=== PATIENT | female | born 1945 | race Caucasian/White ===

== ENCOUNTER 2016-07-13 05:25 | Day surgery (SDC) | payer MEDICARE, OTHER ==
[2016-07-13] VITALS (8 sets, daily range): BP systolic 98–114; BP diastolic 63–71; PULSE 60–82; RESP 10–17; O2SAT 90–98
[~2016-07-13] VITALS: Ht 164.5 cm; Wt 78.0 kg
[~2016-07-13 05:25] MED LIST: CHOL10008 PO; CLOB15CR2 TP; CeFAZolin 2 Gm/50 mL D5W IV Premix IV ONE; KEN1O TOP; KETACONAZOLE SHAMPOO TP; LEVO100T6 PO; LUTE1CAP4 PO; Lactated Ringer's 1,000 ML IV SCH; ONDA8TAB10 PO; OXYC1TAB24 PO; TAMS0.4C98 PO; TRAM50TA2 PO
[2016-07-13] MEDS ORDERED: Phenylephrine/NS 100 mCg/mL 10 mL Syringe IVPUSH ONE (05:26)
[2016-07-13] MEDS ORDERED: fentaNYL-PF 50 mCg/mL 2 mL Inj ONE (05:26)
[2016-07-13] MEDS ORDERED: Propofol 10,000 mCg/mL 20 mL Inj ONE (05:26)
[2016-07-13] MEDS ORDERED: Ondansetron 2 mg/mL 2 mL Inj ONE (05:26)
[2016-07-13] MEDS ORDERED: Dexamethasone 4 mg/mL Inj ONE (05:26)
[2016-07-13] MEDS ORDERED: levoFLOXacin 500 mg/100 mL D5W Premix IV ONE (07:18)
[2016-07-13] MEDS ORDERED: Lactated Ringer's 1,000 ML IV SCH (07:41)
[2016-07-13] MEDS ORDERED: Lactated Ringer's 500 ML IV PRN (07:41)
--- NOTE | 2016-07-13 07:41 | PCM.HPANE ---
Patient Data Date of Service: Jul 13, 2016 (0710) Surgeon Admitting Provider: Attending Provider:Nirav Vazquez MD Primary Care Physician:Yesenia Christopher PA-C Other Provider:Radha Ivy Anesthesia Reason for Visit Right Ureteral Stone Ht/WT & BMI Height (Feet): 5 Height (Inches): 4.75 Weight (Kilograms): 78 Body Mass Index 29.00 Allergies Coded Allergies: No Known Allergies (Unverified , 07/11/16) Past Anesthesia History Anesthesia History: Denies:: Abnormal Airway, Anesthesia Reactions, Difficult Intubation, Fam Anesthesia Reaction, Malignant Hyperthermia Diabetes History Hx Diabetes?: No MRSA MRSA: No Medications Hypertension Medication: No Home Meds Incl Beta Britt: No Active Scripts Tamsulosin (Flomax)0.4 Mg Capsule0.4 Mg PO DAILY #4 CAPSULE Ref 0 Prov:Bryce Garcia MD 05/31/16 Ondansetron ODT 8 Mg Tab.rapdis8 Mg PO QID PRN For Nausea #20 TABLET Prov:Bryce Garcia MD 05/31/16 oxyCODONE-Acetaminophen 5-325 mg 1 Each Tablet1-2 Tab PO q4 hours PRN For Pain # 20 TABLET Prov:Bryce Garcia MD 05/31/16 Reported Medications Triamcinolone Acet (Triamcinolone Acetonide Ointment)1 Applic/0.25 Gm Oint1 Applic TOP DAILY #60 GM Ref 0 0.1% 07/11/16 Tramadol 50 Mg Cbpdnr18 Mg PO Q6H PRN For Pain Ref 0 07/11/16 [Ketaconazole Shampoo] No Conflict Check1 Applic TP DAILY 07/11/16 Cholecalciferol (Vitamin D3) (Vitamin D3)1,000 Unit Tab.chew1,000 Unit PO DAILY 06/13/16 Lutein/Zeaxanthin (Lutein-Zeaxanthin 25-5 mg Sfgl)1 Each Capsule1 Each PO DAILY 06/13/16 Levothyroxine 100 Mcg Kmqwes03 Mcg PO DAILY For Thyroid Replacement Ref 0 06/13/16 Clobetasol Propionate 15 Gm Cream..g.15 Gm TP BID 06/13/16 History History of ENT Problems?: No HEENT History: Denies:: Abnormal Airway Cataracts Difficult Intubation Dysphagia Glaucoma Hearing Problem Sinus Problem TMJ Hx of Heart Problems?: No Cardiovascular History: Denies:: AICD Congestive Heart Failure Heart Murmur Hypertension Irregular Heartbeat Pacemaker Hx of Respiratory Problem?: No Respiratory History: Denies:: Asthma COPD Emphysema Oxygen Administration Pneumonia Tuberculosis Use of C-PAP Machine Use of Inhalers / NEBS Hx Neurologic Problems?: No Neurological History: Denies:: CVA Dementia Dizziness Headaches Multiple Sclerosis Parkinson's Disease Seizures Hx of GI Problems?: No Gastrointestinal History: Positive for:: Gall Bladder Disease (has gallstone- will need surgery in future ) Denies:: Cirrhosis Gastroesphageal Reflux Gastrointestinal Bleeding Heartburn Hepatitis Hiatal Hernia Liver Disease Rectal Bleeding Hx of Problems?: Yes Female Hx: Denies:: Currently Problems with Breasts? Skin History: Positive for:: History Skin Disorders? (psoriasis scalp) Denies:: Pressure Ulcers Hx Musculoskeletal Problems?: Yes Musculoskeletal History: Positive for:: Musculoskeletal Trauma (S/P RT SHOULDER RPR) Denies:: Back Injury Fibromyalgia Joint Replacement Myasthenia Gravis Osteoarthritis Rheumatoid Arthritis Hx of Psycho/Social Problems?: No Psycho Social History: Denies:: Anxiety Hx Depression Hx Surgeries?: Yes (R shoulder,CYSTO/RT STENT) Hx Any Other Health Problems?: Yes Other History: Positive for:: Thyroid Disease Denies:: Cancer Endocrine Disease Hospitalization History Blood Transfusions: Positive for:: Accept Blood Products? Denies:: Blood Transfusions Hx Diabetes: No Hx Alcohol Use: NoHx Substance Use: No Smoking Status: Unknown if Ever Smoker Have You Smoked inLast 12 mo: No Stop/Bang S-Snoring: Do You Snore Loudly: No T-Tired: feel tired, fatigued: No O-Obsered: Observed not breath: No P-Blood Pressure: treated: No B- Body Mass Index > 35 kg/m2: No A- Age over 50: Yes N- Neck Large Circumference: No G- Gender Male: No YESSY Total Score: 1 Risk Assessment Category Category 1A: Patient has history of documented sleep apnea, and HAS NOT received any narcotic, sedative or anesthesia administration during this stay. Category 1B: Patient has history of documented sleep apnea, and HAS received any narcotic , sedative or anesthesia administration during this stay Category 2: Patient has SUSPECTED Obstructive Sleep Apnea, and HAS received any narcotic , sedative or anesthesia administration during this stay. Category 3: Patient has SUSPECTED Obstructive Sleep Apnea and HAS NOT received narcotic, sedative or anesthesia administration during this stay. Category 4: Outpatient in Procedural Areas with known sleep apnea or who screen positive for High Risk via the STOP/BANG questionnaire. Exam Exam Vital Signs Vital Signs Date Time Temp Pulse Resp B/P Pulse Ox O2 Delivery O2 Flow Rate FiO2 07/13/16 05:56 36.7 77 17 112/69 96 Room Air General Appearance: Alert, Oriented X3, Cooperative, No Acute Distress HEENT/AIRWAY: MP 2 Lungs: Clear to Auscultation Heart: Exam Unremarkable Plan Impression Patient chart reviewed, patient interviewed and anesthestic plan with risks, benefits, and alternatives discussed, and informed consent obtained. NPO Status: 07/12@2029 ASA Physical Status: ASA2 Mod Systemic Disease Anesthetic Plan: GA Bene/Risks/Altern/Consents: Yes HP Complete Prior to Induction: Yes Yevgeniy Mendoza MD Jul 13, 2016 07:41
[2016-07-13] MEDS ORDERED: Phenylephrine 10,000 mCg/mL Inj IVPUSH PRN (07:45)
[2016-07-13] MEDS ORDERED: EPHEDrine Sulfate 50 mg/mL Inj IVPUSH PRN (07:45)
[2016-07-13] MEDS ORDERED: fentaNYL-PF 50 mCg/mL 2 mL Inj IVPUSH PRN (07:45)
[2016-07-13] MEDS ORDERED: MetoCLOpramide 5 mg/mL 2 mL Inj IVPUSH PRN (07:45)
[2016-07-13] MEDS ORDERED: Dexamethasone 4 mg/mL Inj IVPUSH PRN (07:45)
[2016-07-13] MEDS ORDERED: Ondansetron 2 mg/mL 2 mL Inj IVPUSH PRN (07:45)
[2016-07-13] MEDS ORDERED: HYDROmorphone 1 mg/mL Inj IVPUSH PRN (07:45)
--- NOTE | 2016-07-13 08:57 | PCM.SURGPO ---
Immediate Operative Note Date of Surgery: Jul 13, 2016 Pre Operative Diagnosis R renal calculus Post Operative Diagnosis R renal calculus Procedure Extracorporeal shock wave lithotripsy of R renal calculus Surgeon and Mine Supervisor Surgeon: Nirav Vazquez MD Assistants: None Findings Pre-op KUB showed a 12 x 7 mm R lower pole renal calculus. ESWL of R renal calculus performed at a rate of 60, up to a maximum energy level of 4, with a total of 2500 shocks administered. Evidence for very good fragmentation of calculus seen on post-ESWL fluoroscopy. Of note, a 2 minute pause was administered after the initial 200 shocks to aid in stone fragmentation. Of note, previously placed R ureteral stent was left in place. Complications There were no periprocedural complications identified. Surgical Specimen Removed: No Specimen sent to Pathology: No Anesthetic Administered: GA Grafts, Implants: None Output, Estimated Blood Loss: 0 Blood Admin during surgery: No Additional information Patient to return to see Dr. Aguero in 2 weeks for post-op visit and probable cystoscopy and stent removal, with a KUB prior to appt. Nirav Vazquez MD Jul 13, 2016 08:57
--- NOTE | 2016-07-13 08:59 | PCM.ANEP1 ---
Post Anesthesia Phase 1 PACU Phase 1 Assessment Date of Service: Jul 13, 2016 Vital Signs Vital Signs Date Time Temp Pulse Resp B/P Pulse Ox O2 Delivery O2 Flow Rate FiO2 07/13/16 08:50 69 16 109/69 98 Room Air 07/13/16 08:45 36.5 68 10 105/66 93 Room Air 07/13/16 08:40 76 14 112/65 90 Room Air 07/13/16 08:35 78 14 110/71 94 Room Air 07/13/16 08:30 36.3 82 14 98/71 92 Room Air 07/13/16 05:56 36.7 77 17 112/69 96 Room Air Anesthetic Administered: GA Level of Alertness: Sleepy, easy to arouse RINALDI's with Equal Strength: Yes Pain: No Nausea or Vomiting: No Oxygen Delivery: Room Air Lungs: Clear to Auscultation Dermatome Level: Full Sensation Yevgeniy Mendoza MD Jul 13, 2016 08:59
--- NOTE | 2016-07-13 09:00 | PCM.ANEP2 ---
Post Anesthesia Evaluation ASA/CMS Post Anesthesia VS in Patient's Normal Range?: Yes Resp Stable; Airway Patent?: Yes CV Function & Hydration Stable: Yes Mental Status Recovered?: Yes Pain control Satisfactory?: Yes N/V Control Satisfactory?: Yes Yevgeniy Mendoza MD Jul 13, 2016 09:00
[2016-07-13] MEDS ORDERED: oxyCODONE-Acetamin 5-325 mg Tablet PO ONE (09:05)
--- NOTE | 2016-07-13 09:05 | PCM.DISURG ---
Surgical Discharge Instruction Date of Service Jul 13, 2016 Dates of Hospitalization Date of Hospital Admission Jul 13, 2016 Providers Admitting Physician: Nirav Vazquez MD Primary Care Physician: Yesenia Christopher PA-C Attending Physician: Nirav Vazquez MD Discharge Diagnosis Discharge Diagnosis R renal calculus Post Operative diagnosis R renal calculus Diet Discharge Diet: No restrictions, Other (Drink at least 10-12 8oz. glasses (3 liters) of fluids per day) Activity Discharge Activity-General: No restrictions, No driving while taking narcotic Dressing and Incisional Care Hygiene: May shower Additional Instructions Discharge Instructions Strain all urine Follow Up Plan Follow-up Provider (F9): Sima Aguero MD Follow-up appointment: Weeks (2 weeks for post-op visit and probable cystoscopy and stent removal, with a KUB prior to appt.) Call your provider for: Fever, Chills, Vomiting, Other (Pain uncontrolled by pain medications) Nirav Vazquez MD Jul 13, 2016 09:05
[2016-07-13] MEDS ORDERED: oxyCODONE-Acetamin 5-325 mg Tablet PO PRN (09:10)
--- NOTE | 2016-07-13 09:28 | DRSVH ---
PROCEDURE: X-RAY KUB ([id number]) INDICATIONS: RIGHT URETERAL STONE TECHNIQUE: One view of the abdomen acquired. COMPARISON: [facility], CT, CT ABD PELVIS W CON, 05/31/2016, 21:23. FINDINGS: Surgical changes and devices: There is a right ureteral stent which appears in appropriate position. Bowel: Bowel gas pattern is normal. Soft tissues: There is a 10 mm diameter right renal calculus likely in the lower pole of the right ki dney. Lobulated calcification in the right hemipelvis represents a calcified fibroid. Visualized stephon d organ contours appear normal in size. Bones: No suspicious bony lesions. IMPRESSION: Right nephrolithiasis and ureteral stent. Dictated by: Mariangel Watt M.D. on 07/13/2016 at 9:26 Approved by: Mariangel Watt M.D. on 07/13/2016 at 9:26
--- NOTE | 2016-07-15 05:10 | OP ---
[address] [address] OPERATIVE REPORT PATIENT: DAILY ERNANDEZ : 1945 MR#: [id number] ADMIT: 07/13/2016 JOB ID: [id number] DATE OF SURGERY: 07/13/2016 PREOPERATIVE DIAGNOSIS(ES): Right renal calculus. POSTOPERATIVE DIAGNOSIS(ES): Right renal calculus. PROCEDURE: Extracorporeal shockwave lithotripsy of right renal calculus. SURGEON: Nirav Vazquez MD. MAKE UP ARTIST: None. ANESTHESIA: General. EBL: 0 mL. SPECIMENS: None. DRAINS: None. COMPLICATIONS: None. CONDITION: Stable. FINDINGS: Preoperative KUB showed a 12 x7 mm right lower pole renal calculus. ESWL of right renal calculus was performed at a rate of 60 up to a maximum energy level of 4, with a total of 2500 shocks administered. Evidence for very good fragmentation of calculus was seen on post ESWL fluoroscopy. Of note, a 2 minute pause was administered after the initial 200 shocks to aid in stone fragmentation. Of note, previously placed right ureteral stent was left in place. INDICATIONS: The patient is a 71-year-old female seen by Dr. Aguero in the office on July 04, 2016 with a right proximal ureteral calculus. The patient is status post cystoscopy, right retrograde pyelogram and right ureteral stent placement on June 23, [address] Aguero. The patient had preoperative KUB today which showed a 12 x7 mm right lower pole renal calculus and right ureteral stent in good position. The patient now presents for extracorporeal shockwave lithotripsy of right renal calculus. DESCRIPTION OF PROCEDURE: The patient was brought to the operating room and placed supine on the operating room table. The patient was given Levaquin IV antibiotics. Sequential compression device boots were placed. General anesthesia was administered. The patient was left in supine position. Extracorporeal shockwave lithotripsy of right renal calculus was performed at a rate of 60 up to a maximum energy level of 4, with a total of 2500 shocks administered. Evidence for very good fragmentation of the calculus was seen on post ESWL fluoroscopy. Of note a 2 minute pause was administered after the initial 200 shocks to aid in stone fragmentation. Of note, the previously placed right ureteral stent was left in place. The patient was awakened from general anesthesia and transferred to the recovery room in stable condition. The patient tolerated the procedure well. PLAN: Plan is for the patient to return to see Dr. Aguero in the office in two weeks for a postoperative visit and probable cystoscopy and stent removal with a KUB prior to the appointment. DOROTEO
== END 2016-07-13 23:59 | disposition home or self-care (01) ==
LOC: SAS 05:25
PROVIDERS: ATTEND Urology
DX: N20.0 Calculus of kidney (principal)
CPT/HCPCS: 50590; 74000; J1100; J2370; J2405; J7120